=== PATIENT | male | born 1965 | race Caucasian/White ===

== ENCOUNTER 2021-07-18 12:19 | Emergency (ER) | payer OTHER ==
[~2021-07-18] VITALS: Ht 182.9 cm; Wt 82.6 kg
[2021-07-18 12:23] VITALS: BP 141/78
--- NOTE | 2021-07-18 12:38 | NUR ---
PT W/C ASSISTED TO BED2.
[2021-07-18] MEDS ORDERED: ONDANSETRON 4 MG/2 ML VIAL IVP ONE (13:00)
[2021-07-18] MEDS ORDERED: NACL 0.9% 1,000 ML IV ONE (13:00)
--- NOTE | 2021-07-18 13:11 | NUR ---
PT TAKEN TO CT VIA [facility].
[2021-07-18 13:14] LABS: BASOPHILS # (AUTO) 0.1 K/uL (0.00-0.22); BASOPHILS % (AUTO) 0.5 % (0.0-2.0); EOSINOPHILS # (AUTO) 0.2 K/uL (0-0.4); EOSINOPHILS % (AUTO) 1.8 % (0.0-4.0); HEMATOCRIT 41.6 % (36-52); HEMOGLOBIN 14.1 g/dL (12.0-18.0); LYMPHOCYTES # (AUTO) 2.1 K/uL (2.0-11.5); LYMPHOCYTES % (AUTO) 18.2 % (20.5-51.1); MEAN CORPUSCULAR HEMOGLOBIN 31 pg (27-31); MEAN CORPUSCULAR HGB CONC 34 g/dL (33-37); MONOCYTES # (AUTO) 0.8 K/uL (0.8-1.0); NEUTROPHILS # (AUTO) 8.5 K/uL (1.8-7.7); NEUTROPHILS % (AUTO) 72.5 % (42.2-75.2); PLATELET COUNT (AUTO) 280 K/uL (140-450); RED BLOOD CELL COUNT(AUTO) 4.52 MIL/uL (4.20-6.10); RED CELL DISTRIBUTION WIDTH 14.2 % (11.6-13.7); WHITE BLOOD COUNT (AUTO) 11.7 K/uL (4.8-10.8)
[2021-07-18 13:33] LABS: ALBUMIN 4.1 g/dL (3.4-5.0); ANION GAP 12.9 (8-16); CARBON DIOXIDE 27.1 mmol/L (21-32); TOTAL BILIRUBIN 0.7 mg/dL (0.0-1.0)
[2021-07-18] MEDS ORDERED: METO-485 PO (13:54)
--- NOTE | 2021-07-18 14:59 | NUR ---
Patient discharged with v/s stable. Written and verbal after care instructions given and explained. Patient alert, oriented and verbalized understanding of instructions. Ambulatory with steady gait. All questions addressed prior to discharge. ID band removed. Patient advised to follow up with PMD. Rx of REGLAN given. Patient educated on indication of medication including possible reaction and side effects. Opportunity to ask questions provided and answered.
[2021-07-18 15:00] VITALS: BP 141/78
--- NOTE | 2021-08-18 13:52 | NUR ---
LATE ENTRY- IV NS DISCONTINUED AT [id number]
== END 2021-07-18 15:00 | disposition home or self-care (01) ==
LOC: MED 12:19
DX: R11.2 Nausea with vomiting, unspecified (principal); G81.91 Hemiplegia, unspecified affecting right dominant side; E11.9 Type 2 diabetes mellitus without complications; K21.9 Gastro-esophageal reflux disease without esophagitis; I10 Essential (primary) hypertension; E78.5 Hyperlipidemia, unspecified; Z86.73 Personal history of transient ischemic attack (TIA), and cerebral infarction without residual deficits; F17.210 Nicotine dependence, cigarettes, uncomplicated; Z98.890 Other specified postprocedural states; Z79.899 Other long term (current) drug therapy
CPT/HCPCS: 36415; 74176; 80053; 83690; 85025; 96361; 96374; 99284; J2405; J7030

== ENCOUNTER 2021-08-04 07:21 | Day surgery (SDC) | payer OTHER ==
[~2021-08-04] VITALS: Ht 172.7 cm; Wt 83.5 kg
[~2021-08-04 07:21] MED LIST: METO-485 PO
[2021-08-04] MEDS ORDERED: fentaNYL citrate 0.05 MG/ML VIAL ONE (08:21)
[2021-08-04] MEDS ORDERED: MIDAZOLAM 5 MG/5 ML VIAL ONE (08:21)
[2021-08-04] MEDS ORDERED: MIDAZOLAM 2 MG/2 ML VIAL IVP ONE (10:20)
== END 2021-08-04 09:56 | disposition home or self-care (01) ==
LOC: MMU 07:21 → MOR 07:21
PROVIDERS: ATTEND Internal Medicine Gastroenterology
DX: R13.10 Dysphagia, unspecified (principal); K44.9 Diaphragmatic hernia without obstruction or gangrene; Z20.822 Contact with and (suspected) exposure to COVID-19
CPT/HCPCS: 36415; 43239; 86677; 87426; J2250; J3010